=== PATIENT | female | born 1995 | race Caucasian/White ===

== ENCOUNTER 2019-04-21 08:40 | Observation (INO) | payer OTHER, SELFPAY ==
[2019-04-21] MEDS ORDERED: IV RINGERS,LACTATED 1000ML 1,000 ML IV PRN (09:00)
[2019-04-21] MEDS ORDERED: ONDANSETRON PF 4 MG/2 ML VIAL. IV PRN (09:30)
[2019-04-21 09:53] LABS: BARBITURATES NEG (NEG); BENZODIAZEPINES NEG (NEG); BILIRUBIN,URINE SMALL (NEG); CANNABINOIDS NEG (NEG); CLARITY,URINE TURBID; COCAINE NEG (NEG); COLOR,URINE AMBER; METHADONE NEG (NEG); NITRITE,URINE NEGATIVE (NEG); OPIATES NEG (NEG); PH,URINE 5.5; PHENCYCLIDINE NEG (NEG); PROTEIN,URINE 30 mg/dL (NEG-TRACE)
[2019-04-21 09:56] LABS: AMPHETAMINE/METHAMPHETAMINE NEG (NEG)
[2019-04-21 10:17] LABS: BACTERIA,URINE FEW /HPF (0-FEW); SQUAMOUS EPITHELIAL CELL,UR MANY /LPF; WBC,URINE >40 /HPF (0-4)
[2019-04-21 10:18] LABS: TRICHOMONAS,URINE PRESENT
[2019-04-21 10:21] LABS: BASO % 0 % (0-3); EOS % 0 % (0-3); HEMATOCRIT 37.1 % (36.0-47.0); HEMOGLOBIN 12.4 g/dL (12.0-15.5); LYMPH # 1.6 x10^3/uL (1.0-4.8); LYMPH % 15 % (24-48); MEAN CORPUSCULAR HEMOGLOBIN 30 pg (25-35); MEAN CORPUSCULAR HGB CONC 34 g/dL (31-37); MEAN CORPUSCULAR VOLUME 90 fL (79-100); MONO # 0.4 x10^3/uL (0.0-1.1); MONO % 4 % (0-9); NEUT # 8.8 x10^3uL (1.8-7.7); NEUT % 81 % (31-73); PLATELET COUNT 299 x10^3/uL (140-400); RED BLOOD COUNT 4.12 x10^6/uL (3.50-5.40); RED CELL DISTRIBUTION WIDTH 14.1 % (11.5-14.5); WHITE BLOOD COUNT 10.8 x10^3/uL (4.0-11.0)
[2019-04-21 10:26] LABS: POTASSIUM 3.5 mmol/L (3.5-5.1)
[2019-04-21] MEDS ORDERED: ACETAMINOPHEN 325 MG TABLET. PO PRN (11:15)
[2019-04-21] MEDS: LOPERAMIDE 2 MG CAPSULE PO PRN ×2 (11:36→12:57)
== END 2019-04-21 13:37 | disposition home or self-care (01) ==
LOC: 3 SO LND 08:40
PROVIDERS: ADMIT Obstetrics & Gynecology; ATTEND Obstetrics & Gynecology
DX: O21.2 Late vomiting of pregnancy (principal); O62.9 Abnormality of forces of labor, unspecified; O26.893 Other specified pregnancy related conditions, third trimester; R19.7 Diarrhea, unspecified; R10.13 Epigastric pain; Z3A.35 35 weeks gestation of pregnancy
CPT/HCPCS: 36415; 80051; 80307; 81001; 85025; 86592; 86703; 86762; 86850; 86900; 86901; 87086; 87340; 96361; 96374; G0378; G0379; J2405; J7120